=== PATIENT | female | born 1955 | race Caucasian/White ===

== ENCOUNTER 2017-09-08 10:31 | Emergency (ER) | payer BC ==
--- NOTE | 2017-09-08 10:53 | EDM.PDOC ---
ED HPI GENERAL MEDICAL PROBLEM - General Chief Complaint: Gastrointestinal Problem Stated Complaint: VOMITING Time Seen by Provider: 09/08/17 10:36 Source of Information: Reports: Patient History Limitations: Reports: No Limitations - History of Present Illness INITIAL COMMENTS - FREE TEXT/NARRATIVE: History of present illness: []Patient's been having vomiting for 5 days and a small amount of diarrhea that has now resolved. Patient states she vomits every time she tries to drink any water or puts anything in her mouth. She has had fevers and chills but has not measured temperature. Patient denies back or abdominal pain and states her urine is dark. Review of systems: As per history of present illness and below otherwise all systems reviewed and negative. Past medical history: As per history of present illness and as reviewed below otherwise noncontributory. Surgical history: As per history of present illness and as reviewed below otherwise noncontributory. Social history: No reported history of drug or alcohol abuse. Family history: As per history of present illness and as reviewed below otherwise noncontributory. Physical exam: General: Well developed, well nourished in NAD HEENT: Atraumatic, normocephalic, pupils reactive, negative for conjunctival pallor or scleral icterus, mucous membranes moist, throat clear, neck supple, nontender, trachea midline. Lungs: Clear to auscultation, breath sounds equal bilaterally, chest nontender. Heart: S1S2, regular, negative for clicks, rubs, or JVD. Abdomen: Soft, nondistended, tender in upper abdomen without rebound or guarding. Negative for masses or hepatosplenomegaly. Negative for costovertebral tenderness. Pelvis: Stable nontender. Genitourinary: Deferred. Rectal: Deferred. Extremities: Atraumatic, negative for cords or calf pain. Neurovascular unremarkable. Neuro: Awake, alert, oriented. Cranial nerves II through XII unremarkable. Cerebellum unremarkable. Motor and sensory unremarkable throughout. Exam nonfocal. Diagnostics: []Labs ordered showing elevated white count and elevated liver function tests. CT scan abdomen was ordered and it showed 10 x 6 x 8 mass with the liver suspicious for neoplasm with multiple other lesions throughout the liver representing possibly cysts there was one noted gallstone without inflammation or dilatation of the biliary tract. And moderate diverticulosis, there is also a 3.5 simple ovarian cyst on the left. CEA 125, CEA, CA 19 9 and alpha- fetoprotein were ordered and drawn here. Results pending Therapeutics: []Patient was given IV fluids and hydrated and Zofran while awaiting results with improvement of symptoms Impression: []Liver mass Plan: []Dr. Trevino was consulted who recommended patient be transferred to Dr. Weaver in [facility]. Definitive disposition and diagnosis as appropriate pending reevaluation and review of above. - Related Data Allergies Allergy/AdvReac Type Severity Reaction Status Date / Time No Known Allergies Allergy Verified 02/27/14 08:26 Home Meds: Home Meds . [No Known Home Meds] 09/08/17 [History] ED ROS GENERAL - Review of Systems Review Of Systems: See Below (The history of present illness) ED EXAM, GI/ABD - Physical Exam Exam: See Below (See history of present illness) Course - Vital Signs Last Recorded V/S: Last Vital Signs Temp 97.9 F 09/08/17 13:55 Pulse 72 09/08/17 13:55 Resp 16 09/08/17 13:55 BP 144/62 H 09/08/17 13:55 Pulse Ox 95 09/08/17 13:55 - Orders/Labs/Meds Orders: Active Orders 24 hr Category Date Time Status AFP,TUMOR MARKER [REF] Stat Lab 09/08/17 15:37 Received CA 19-9 [REF] Stat Lab 09/08/17 15:37 Received CANCER ANTIGEN 125,CA 125 [CHEM] Stat Lab 09/08/17 12:07 Results CARCINOEMBRYONIC ANTIGEN,CEA [CHEM] Stat Lab 09/08/17 12:07 Results CULTURE BLOOD [BC] Stat Lab 09/08/17 15:37 Received CULTURE BLOOD [BC] Stat Lab 09/08/17 15:48 Received Sodium Chloride 0.9% [Saline Flush] Med 09/08/17 11:48 Active 10 ml FLUSH ASDIRECTED PRN Sodium Chloride 0.9% [Saline Flush] Med 09/08/17 11:48 Active 2.5 ml FLUSH ASDIRECTED PRN Blood Culture x2 Reflex Set [OM.PC] Stat Oth 09/08/17 15:32 Ordered Saline Lock Insert [OM.PC] Stat Oth 09/08/17 11:48 Ordered Medication Orders Sodium Chloride (Saline Flush) 10 ml FLUSH ASDIRECTED PRN PRN Reason: Keep Vein Open Last Admin: 09/08/17 12:10 Dose: 10 ml Sodium Chloride (Saline Flush) 2.5 ml FLUSH ASDIRECTED PRN PRN Reason: Keep Vein Open Last Admin: 09/08/17 12:10 Dose: 2.5 ml Labs: Laboratory Tests 09/08/17 09/08/17 09/08/17 Range/Units 12:07 12:07 12:07 WBC 18.13 H (4.0-11.0) K/uL RBC 3.64 L (4.30-5.90) M/uL Hgb 10.8 L (12.0-16.0) g/dL Hct 32.1 L (36.0-46.0) % MCV 88.2 (80.0-98.0) fL MCH 29.7 (27.0-32.0) pg MCHC 33.6 (31.0-37.0) g/dL RDW Std Deviation 44.0 (28.0-62.0) fl RDW Coeff of Anna 14 (11.0-15.0) % Plt Count 273 (150-400) K/uL MPV 10.10 (7.40-12.00) fL Add Manual Diff YES Neutrophils % (Manual) 70 (48.0-80.0) % Band Neutrophils % 13 % Lymphocytes % (Manual) 13 L (16.0-40.0) % Monocytes % (Manual) 4 (0.0-15.0) % Nucleated RBC % 0.0 /100WBC Absolute Seg Neuts 12.7 H (1.4-5.7) Band Neutrophils # 2.4 Lymphocytes # (Manual) 2.4 (0.6-2.4) Monocytes # (Manual) 0.7 (0.0-0.8) Nucleated RBCs # 0 K/uL Sodium 137 (136-146) mmol/L Potassium 3.5 (3.5-5.1) mmol/L Chloride 102 (98-110) mmol/L Carbon Dioxide 25 (21-31) mmol/L BUN 25 H (6.0-23.0) mg/dL Creatinine 0.8 (0.6-1.5) mg/dL Est Cr Clr Drug Dosing 59.54 mL/min Estimated GFR (MDRD) > 60.0 ml/min Glucose 147 H (60-110) mg/dL Calcium 9.6 (8.8-10.8) mg/dL Total Bilirubin 2.4 H (0.1-1.5) mg/dL AST 57 H (5-40) IU/L ALT 86 H (8-54) IU/L Alkaline Phosphatase 149 (40-150) Total Protein 7.1 (6.0-8.0) g/dL Albumin 3.5 (3.4-4.8) g/dL Globulin 3.6 H (2.0-3.5) g/dL Albumin/Globulin Ratio 1.0 L (1.3-2.8) Lipase < 9 (7-80) U/L Carcinoembryonic Ag 2.1 ng/mL Urine Color Urine Appearance Urine pH (5.0-8.0) Ur Specific [place] (1.001-1.035) Urine Protein (NEGATIVE) mg/dL Urine Glucose (UA) (NEGATIVE) mg/dL Urine Ketones (NEGATIVE) mg/dL Urine Occult Blood (NEGATIVE) Urine Nitrite (NEGATIVE) Urine Bilirubin (NEGATIVE) Urine Ictotest Urine Urobilinogen (<2.0) EU/dL Ur Leukocyte Esterase (NEGATIVE) Urine RBC (0-2/HPF) Urine WBC (0-5/HPF) Ur Epithelial Cells (NONE-FEW) Urine Bacteria (NEGATIVE) Hyaline Casts (0-2/LPF) Urine Mucus (NONE-MOD) 09/08/17 Range/Units 13:14 WBC (4.0-11.0) K/uL RBC (4.30-5.90) M/uL Hgb (12.0-16.0) g/dL Hct (36.0-46.0) % MCV (80.0-98.0) fL MCH (27.0-32.0) pg MCHC (31.0-37.0) g/dL RDW Std Deviation (28.0-62.0) fl RDW Coeff of Anna (11.0-15.0) % Plt Count (150-400) K/uL MPV (7.40-12.00) fL Add Manual Diff Neutrophils % (Manual) (48.0-80.0) % Band Neutrophils % % Lymphocytes % (Manual) (16.0-40.0) % Monocytes % (Manual) (0.0-15.0) % Nucleated RBC % /100WBC Absolute Seg Neuts (1.4-5.7) Band Neutrophils # Lymphocytes # (Manual) (0.6-2.4) Monocytes # (Manual) (0.0-0.8) Nucleated RBCs # K/uL Sodium (136-146) mmol/L Potassium (3.5-5.1) mmol/L Chloride (98-110) mmol/L Carbon Dioxide (21-31) mmol/L BUN (6.0-23.0) mg/dL Creatinine (0.6-1.5) mg/dL Est Cr Clr Drug Dosing mL/min Estimated GFR (MDRD) ml/min Glucose (60-110) mg/dL Calcium (8.8-10.8) mg/dL Total Bilirubin (0.1-1.5) mg/dL AST (5-40) IU/L ALT (8-54) IU/L Alkaline Phosphatase (40-150) Total Protein (6.0-8.0) g/dL Albumin (3.4-4.8) g/dL Globulin (2.0-3.5) g/dL Albumin/Globulin Ratio (1.3-2.8) Lipase (7-80) U/L Carcinoembryonic Ag ng/mL Urine Color DARK YELLOW Urine Appearance SLT CLOUDY Urine pH 6.0 (5.0-8.0) Ur Specific [place] 1.020 (1.001-1.035) Urine Protein TRACE (NEGATIVE) mg/dL Urine Glucose (UA) NEGATIVE (NEGATIVE) mg/dL Urine Ketones NEGATIVE (NEGATIVE) mg/dL Urine Occult Blood NEGATIVE (NEGATIVE) Urine Nitrite NEGATIVE (NEGATIVE) Urine Bilirubin SMALL H (NEGATIVE) Urine Ictotest NEGATIVE Urine Urobilinogen 4.0 H (<2.0) EU/dL Ur Leukocyte Esterase NEGATIVE (NEGATIVE) Urine RBC 0-2 (0-2/HPF) Urine WBC 6-8 (0-5/HPF) Ur Epithelial Cells MODERATE (NONE-FEW) Urine Bacteria FEW (NEGATIVE) Hyaline Casts 0-1 (0-2/LPF) Urine Mucus LIGHT (NONE-MOD) Meds: Medications Generic Name Dose Route Start Last Admin Trade Name Freq PRN Reason Stop Dose Admin Sodium Chloride 10 ml 09/08/17 11:48 09/08/17 12:10 Saline Flush FLUSH 10 ml ASDIRECTED PRN Administration Keep Vein Open Sodium Chloride 2.5 ml 09/08/17 11:48 09/08/17 12:10 Saline Flush FLUSH 2.5 ml ASDIRECTED PRN Administration Keep Vein Open Discontinued Medications Generic Name Dose Route Start Last Admin Trade Name Chemoq PRN Reason Stop Dose Admin Sodium Chloride 1,000 mls @ 999 mls/hr 09/08/17 11:48 09/08/17 12:09 Normal Saline IV 09/08/17 12:48 999 mls/hr .Bolus ONE Administration Iopamidol 100 ml 09/08/17 13:35 09/08/17 13:37 Isovue Multipack-370 (76%) IVPUSH 09/08/17 13:36 100 ml ONETIME STA Administration Ondansetron HCl 4 mg 09/08/17 11:48 09/08/17 12:17 Zofran IVPUSH 09/08/17 11:49 4 mg ONETIME ONE Administration Departure - Departure Time of Disposition: 16:45 Disposition: DC/Tfer to Acute Hospital 02 Condition: Good Clinical Impression: Liver mass Vomiting Qualifiers: Vomiting type: unspecified Vomiting Intractability: non-intractable Nausea presence: without nausea Qualified Code(s): R11.11 - Vomiting without nausea - Discharge Information Referrals: Santo Lux DO [Primary Care Provider] - Forms: ED Department Discharge - My Orders Last 24 Hours: My Active Orders 09/08/17 11:48 Sodium Chloride 0.9% [Saline Flush] 10 ml FLUSH ASDIRECTED PRN Sodium Chloride 0.9% [Saline Flush] 2.5 ml FLUSH ASDIRECTED PRN Saline Lock Insert [OM.PC] Stat 09/08/17 12:07 CANCER ANTIGEN 125,CA 125 [CHEM] Stat CARCINOEMBRYONIC ANTIGEN,CEA [CHEM] Stat 09/08/17 15:32 Blood Culture x2 Reflex Set [OM.PC] Stat 09/08/17 15:37 AFP,TUMOR MARKER [REF] Stat CA 19-9 [REF] Stat CULTURE BLOOD [BC] Stat 09/08/17 15:48 CULTURE BLOOD [BC] Stat - Assessment/Plan Last 24 Hours: My Active Orders 09/08/17 11:48 Sodium Chloride 0.9% [Saline Flush] 10 ml FLUSH ASDIRECTED PRN Sodium Chloride 0.9% [Saline Flush] 2.5 ml FLUSH ASDIRECTED PRN Saline Lock Insert [OM.PC] Stat 09/08/17 12:07 CANCER ANTIGEN 125,CA 125 [CHEM] Stat CARCINOEMBRYONIC ANTIGEN,CEA [CHEM] Stat 09/08/17 15:32 Blood Culture x2 Reflex Set [OM.PC] Stat 09/08/17 15:37 AFP,TUMOR MARKER [REF] Stat CA 19-9 [REF] Stat CULTURE BLOOD [BC] Stat 09/08/17 15:48 CULTURE BLOOD [BC] Stat
[2017-09-08] MEDS ORDERED: Ondansetron 4 MG/2 ML SDV IVPUSH ONE (11:48)
[2017-09-08] MEDS ORDERED: Sodium Chloride 0.9% 10 ML Syringe FLUSH PRN (11:48)
[2017-09-08] MEDS ORDERED: Sodium Chloride 0.9% 2.5 ML Syringe FLUSH PRN (11:48)
[2017-09-08] MEDS ORDERED: Sodium Chloride 0.9% 1,000 ML IV ONE (11:48)
[2017-09-08 12:50] LABS: CHLORIDE,CL 102 mmol/L (98-110); SODIUM,NA 137 mmol/L (136-146)
[2017-09-08] MEDS ORDERED: Iopamidol 755 MG/ML 500 ML Multipack Bottle IVPUSH STA (13:35)
--- NOTE | 2017-09-08 16:20 | CT ---
EXAM DATE: 09/08/17 PATIENT'S AGE: 62 Patient: АННА HEIN Facility: [place], [place] Site . Site : 1955 Study: CT Abdomen/Pelvis [id number]/11/2018 1:57:45 PM Ordering Physician: Abram Licea Final Report: INDICATION: Nausea and vomiting. Loss of appetite. TECHNIQUE: CT abdomen and pelvis acquired with IV contrast. Contrast-enhanced images were obtained in the portal venous and delayed phases. COMPARISON: None. FINDINGS: LOWER CHEST: Unremarkable. LIVER: Moderately enlarged measuring up to 25 cm in length. Large low attenuation mass in the liver dome measures 10 x 8 x 6 cm mass visualized on image 15. This mass demonstrates multiple peripheral septations which are unchanged in density on the portal venous and delayed phases. Multiple other subcentimeter low attenuation lesions scattered throughout the liver likely represent cysts. GALLBLADDER AND BILE DUCTS: Subtle gallbladder stone is present. No inflammation or biliary dilatation. PANCREAS: Unremarkable. No mass or inflammation. SPLEEN: Unremarkable. Normal in size. No masses. ADRENAL GLANDS: Stable nonspecific enlargement of the left adrenal gland. Normal right adrenal gland. KIDNEYS: Unremarkable. No masses, stones, or hydronephrosis. GI TRACT: Moderate diverticulosis. Generalized wall thickening is demonstrated amongst multiple diverticula in the sigmoid colon. GI tract is otherwise normal in caliber and appearance. VASCULATURE: Unremarkable. LYMPH NODES: No lymphadenopathy. OMENTUM/PERITONEUM/ABDOMINAL WALL: Unremarkable. No sign of mass or infiltration. No free air or significant free fluid. PELVIS: 3.5 cm simple left ovarian cyst is present. Right ovary is not visualized. Uterus is absent. Urinary bladder is normal. BONES: Unremarkable for age. IMPRESSION: 1. Large mass in the liver measuring up to 10 cm demonstrates numerous soft tissue septations. This is concerning for neoplasm. MRI evaluation using a liver mass protocol is recommended as the next step in evaluating this lesion. Tissue sampling may also be necessary. 2. Moderate hepatomegaly. 3. Subtle cholelithiasis. 4. Nonspecific generalized thickening is present amongst diverticula in the sigmoid colon. Chronic inflammation is possible. This finding should be correlated with past or future colonoscopy results. 5. No other acute or specific finding to explain nausea and vomiting. Please note that all CT scans at this facility use dose modulation, iterative reconstruction, and/or weight-based dosing when appropriate to reduce radiation dose to as low as reasonably achievable. Dictated by John Buitrago MD @ Sep 08 2017 2:11PM (Electronic Signature) Report Signed by Proxy. MTDD
== END 2017-09-08 16:45 ==
LOC: MW.ED 10:31
DX: R16.0 Hepatomegaly, not elsewhere classified (principal); R11.11 Vomiting without nausea
CPT/HCPCS: 74177; 80053; 81001; 82105; 82378; 83690; 85025; 86301; 86304; 87040; 87804; 96361; 96374; 99285; J2405; J7040; Q9967; 99284

== ENCOUNTER 2017-09-19 08:19 | Emergency (ER) | payer BC ==
[2017-09-19] MEDS ORDERED: Sodium Chloride 0.9% 1,000 ML IV ONE (08:37)
[2017-09-19] MEDS ORDERED: Ondansetron 4 MG/2 ML SDV IVPUSH ONE (08:37)
[2017-09-19] MEDS ORDERED: Morphine 2 MG/ML Syringe IVPUSH ONE (08:37)
[2017-09-19] MEDS ORDERED: Sodium Chloride 0.9% 10 ML Syringe FLUSH PRN (08:37)
[2017-09-19] MEDS ORDERED: Sodium Chloride 0.9% 2.5 ML Syringe FLUSH PRN (08:37)
--- NOTE | 2017-09-19 08:42 | EDM.PDOC ---
ED HPI GENERAL MEDICAL PROBLEM - General Chief Complaint: Abdominal Pain Stated Complaint: R ABD PAIN Time Seen by Provider: 09/19/17 08:29 - History of Present Illness INITIAL COMMENTS - FREE TEXT/NARRATIVE: HISTORY AND PHYSICAL: History of present illness: Patient 62-year-old female presents with concern of right-sided abdominal pain patient had a liver abscess that was drained on or about 10 September she's currently on antibiotics in form of Rocephin 2 g daily and presents now with a concern of right-sided abdominal pain with equivocal splinting worse over last 48 hours she was advised that biliary colic is an common prodrome related to her current state. He has never had prior gallbladder disease or problems. He denies fever chills denies chest pain denies diarrhea Review of systems: As per history of present illness and below otherwise all systems reviewed and negative. Past medical history: As per history of present illness and as reviewed below otherwise noncontributory. Surgical history: As per history of present illness and as reviewed below otherwise noncontributory. Social history: No reported history of drug or alcohol abuse. Family history: As per history of present illness and as reviewed below otherwise noncontributory. Physical exam: HEENT: Atraumatic, normocephalic, pupils reactive, negative for conjunctival pallor or scleral icterus, mucous membranes moist, throat clear, neck supple, nontender, trachea midline. Lungs: Clear to auscultation, breath sounds equal bilaterally, chest nontender. Heart: S1S2, regular, negative for clicks, rubs, or JVD. Abdomen: Soft, nondistended, right upper quadrant tenderness to deep palpation no rebound or guarding. Negative for masses or hepatosplenomegaly. Negative for costovertebral tenderness. Pelvis: Stable nontender. Genitourinary: Deferred. Rectal: Deferred. Extremities: Atraumatic, negative for cords or calf pain. Neurovascular unremarkable. Neuro: Awake, alert, oriented. Cranial nerves II through XII unremarkable. Cerebellum unremarkable. Motor and sensory unremarkable throughout. Exam nonfocal. Diagnostics: CBC CMP amylase lipase PT/INR troponin chest x-ray EKG CT abdomen and pelvis Therapeutics: Saline 1 L bolus Zofran 4 mg IV morphine sulfate 2 mg IV when necessary Impression: #1 history of liver abscess with percutaneous drainage #2 right-sided abdominal pain Definitive disposition and diagnosis as appropriate pending reevaluation and review of above. 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 ED EXAM, GENERAL - Physical Exam Exam: See Below (See dictation) Course - Vital Signs Text/Narrative:: Patient emergency department course has been unremarkable she is without any significant pain she does have some discomfort still with position changes but no vomiting no fever her workup in the emergency department was reviewed with patient the unclear etiology of her pain at this point is to be determined I discussed with her various options including admission for observation continue her current therapy and close follow-up with her [place] physician group she opts for the latter with discharge home with close follow-up she's return as needed as discussed for persistent or worsening pain nausea vomiting fever chills continue her current therapy Last Recorded V/S: Last Vital Signs Temp 35.9 C 09/19/17 08:40 Pulse 78 09/19/17 10:45 Resp 13 09/19/17 10:45 BP 179/89 H 09/19/17 10:45 Pulse Ox 95 09/19/17 10:45 - Orders/Labs/Meds Orders: Active Orders 24 hr Category Date Time Status Cardiac Monitoring [RC] . DIRECTED Care 09/19/17 08:36 Active EKG Documentation Completion [RC] STAT Care 09/19/17 08:36 Active Pulse Oximetry [RC] ASDIRECTED Care 09/19/17 08:36 Active Sodium Chloride 0.9% [Saline Flush] Med 09/19/17 08:37 Active 10 ml FLUSH ASDIRECTED PRN Sodium Chloride 0.9% [Saline Flush] Med 09/19/17 08:37 Active 2.5 ml FLUSH ASDIRECTED PRN Saline Lock Insert [OM.PC] Stat Oth 09/19/17 08:36 Ordered Medication Orders Sodium Chloride (Saline Flush) 10 ml FLUSH ASDIRECTED PRN PRN Reason: Keep Vein Open Last Admin: 09/19/17 09:12 Dose: 10 ml Sodium Chloride (Saline Flush) 2.5 ml FLUSH ASDIRECTED PRN PRN Reason: Keep Vein Open Last Admin: 09/19/17 09:12 Dose: 2.5 ml Labs: Laboratory Tests 09/19/17 09/19/17 09/19/17 Range/Units 08:50 08:50 08:50 WBC 13.75 H (4.0-11.0) K/uL RBC 4.04 L (4.30-5.90) M/uL Hgb 11.9 L (12.0-16.0) g/dL Hct 36.8 (36.0-46.0) % MCV 91.1 (80.0-98.0) fL MCH 29.5 (27.0-32.0) pg MCHC 32.3 (31.0-37.0) g/dL RDW Std Deviation 48.3 (28.0-62.0) fl RDW Coeff of Anna 15 (11.0-15.0) % Plt Count 599 H (150-400) K/uL MPV 8.60 (7.40-12.00) fL Neut % (Auto) 78.7 (48.0-80.0) % Lymph % (Auto) 12.7 L (16.0-40.0) % [place] % (Auto) 7.5 (0.0-15.0) % Eos % (Auto) 0.7 (0.0-7.0) % Baso % (Auto) 0.4 (0.0-1.5) % Neut # (Auto) 10.8 H (1.4-5.7) K/uL Lymph # (Auto) 1.8 (0.6-2.4) K/uL [place] # (Auto) 1.0 H (0.0-0.8) K/uL Eos # (Auto) 0.1 (0.0-0.7) K/uL Baso # (Auto) 0.1 (0.0-0.1) K/uL Nucleated RBC % 0.0 /100WBC Nucleated RBCs # 0 K/uL INR 1.13 Sodium 137 (136-146) mmol/L Potassium 3.7 (3.5-5.1) mmol/L Chloride 102 (98-110) mmol/L Carbon Dioxide 23 (21-31) mmol/L BUN 8 (6.0-23.0) mg/dL Creatinine 0.7 (0.6-1.5) mg/dL Est Cr Clr Drug Dosing 65.06 mL/min Estimated GFR (MDRD) > 60.0 ml/min Glucose 134 H (60-110) mg/dL Calcium 9.5 (8.8-10.8) mg/dL Total Bilirubin 0.7 (0.1-1.5) mg/dL AST 20 (5-40) IU/L ALT 17 (8-54) IU/L Alkaline Phosphatase 94 (40-150) Troponin I < 0.10 (0.0-0.29) NG/ML Total Protein 7.4 (6.0-8.0) g/dL Albumin 3.9 (3.4-4.8) g/dL Globulin 3.5 (2.0-3.5) g/dL Albumin/Globulin Ratio 1.1 L (1.3-2.8) Amylase 32 (10-90) U/L Lipase 18 (7-80) U/L Urine Color Urine Appearance Urine pH (5.0-8.0) Ur Specific [place] (1.001-1.035) Urine Protein (NEGATIVE) mg/dL Urine Glucose (UA) (NEGATIVE) mg/dL Urine Ketones (NEGATIVE) mg/dL Urine Occult Blood (NEGATIVE) Urine Nitrite (NEGATIVE) Urine Bilirubin (NEGATIVE) Urine Urobilinogen (<2.0) EU/dL Ur Leukocyte Esterase (NEGATIVE) Urine RBC (0-2/HPF) Urine WBC (0-5/HPF) Ur Epithelial Cells (NONE-FEW) Urine Bacteria (NEGATIVE) 09/19/17 Range/Units 10:30 WBC (4.0-11.0) K/uL RBC (4.30-5.90) M/uL Hgb (12.0-16.0) g/dL Hct (36.0-46.0) % MCV (80.0-98.0) fL MCH (27.0-32.0) pg MCHC (31.0-37.0) g/dL RDW Std Deviation (28.0-62.0) fl RDW Coeff of Anna (11.0-15.0) % Plt Count (150-400) K/uL MPV (7.40-12.00) fL Neut % (Auto) (48.0-80.0) % Lymph % (Auto) (16.0-40.0) % [place] % (Auto) (0.0-15.0) % Eos % (Auto) (0.0-7.0) % Baso % (Auto) (0.0-1.5) % Neut # (Auto) (1.4-5.7) K/uL Lymph # (Auto) (0.6-2.4) K/uL [place] # (Auto) (0.0-0.8) K/uL Eos # (Auto) (0.0-0.7) K/uL Baso # (Auto) (0.0-0.1) K/uL Nucleated RBC % /100WBC Nucleated RBCs # K/uL INR Sodium (136-146) mmol/L Potassium (3.5-5.1) mmol/L Chloride (98-110) mmol/L Carbon Dioxide (21-31) mmol/L BUN (6.0-23.0) mg/dL Creatinine (0.6-1.5) mg/dL Est Cr Clr Drug Dosing mL/min Estimated GFR (MDRD) ml/min Glucose (60-110) mg/dL Calcium (8.8-10.8) mg/dL Total Bilirubin (0.1-1.5) mg/dL AST (5-40) IU/L ALT (8-54) IU/L Alkaline Phosphatase (40-150) Troponin I (0.0-0.29) NG/ML Total Protein (6.0-8.0) g/dL Albumin (3.4-4.8) g/dL Globulin (2.0-3.5) g/dL Albumin/Globulin Ratio (1.3-2.8) Amylase (10-90) U/L Lipase (7-80) U/L Urine Color YELLOW Urine Appearance CLEAR Urine pH 6.5 (5.0-8.0) Ur Specific [place] 1.015 (1.001-1.035) Urine Protein NEGATIVE (NEGATIVE) mg/dL Urine Glucose (UA) NEGATIVE (NEGATIVE) mg/dL Urine Ketones NEGATIVE (NEGATIVE) mg/dL Urine Occult Blood NEGATIVE (NEGATIVE) Urine Nitrite NEGATIVE (NEGATIVE) Urine Bilirubin NEGATIVE (NEGATIVE) Urine Urobilinogen 0.2 (<2.0) EU/dL Ur Leukocyte Esterase SMALL (NEGATIVE) Urine RBC 0-1 (0-2/HPF) Urine WBC 3-5 (0-5/HPF) Ur Epithelial Cells FEW (NONE-FEW) Urine Bacteria RARE (NEGATIVE) Meds: Medications Generic Name Dose Route Start Last Admin Trade Name Bethanie PRN Reason Stop Dose Admin Sodium Chloride 10 ml 09/19/17 08:37 09/19/17 09:12 Saline Flush FLUSH 10 ml ASDIRECTED PRN Administration Keep Vein Open Sodium Chloride 2.5 ml 09/19/17 08:37 09/19/17 09:12 Saline Flush FLUSH 2.5 ml ASDIRECTED PRN Administration Keep Vein Open Discontinued Medications Generic Name Dose Route Start Last Admin Trade Name Bethanie PRN Reason Stop Dose Admin Sodium Chloride 1,000 mls @ 999 mls/hr 09/19/17 08:37 09/19/17 09:12 Normal Saline IV 09/19/17 09:37 999 mls/hr STAT ONE Administration Iopamidol 100 ml 09/19/17 11:10 09/19/17 11:11 Isovue Multipack-370 (76%) IVPUSH 09/19/17 11:11 100 ml ONETIME STA Administration Morphine Sulfate 2 mg 09/19/17 08:37 09/19/17 11:09 Morphine IVPUSH 09/19/17 08:38 Not Given ONETIME ONE Ondansetron HCl 4 mg 09/19/17 08:37 09/19/17 09:12 Zofran IVPUSH 09/19/17 08:38 4 mg ONETIME ONE Administration Departure - Departure Time of Disposition: 11:47 Disposition: Home, Self-Care 01 Condition: Good Clinical Impression: Abdominal pain - Discharge Information Referrals: Santo Lux DO [Primary Care Provider] - Forms: ED Department Discharge Additional Instructions: The following information is given to patients seen in the emergency department who are being discharged to home. This information is to outline your options for follow-up care. We provide all patients seen in our emergency department with a follow-up referral. The need for follow-up, as well as the timing and circumstances, are variable depending upon the specifics of your emergency department visit. If you don't have a primary care physician on staff, we will provide you with a referral. We always advise you to contact your personal physician following an emergency department visit to inform them of the circumstance of the visit and for follow-up with them and/or the need for any referrals to a consulting specialist. The emergency department will also refer you to a specialist when appropriate. This referral assures that you have the opportunity for followup care with a specialist. All of these measure are taken in an effort to provide you with optimal care, which includes your followup. Under all circumstances we always encourage you to contact your private physician who remains a resource for coordinating your care. When calling for followup care, please make the office aware that this follow-up is from your recent emergency room visit. If for any reason you are refused follow-up, please contact the [facility] emergency department at and asked to speak to the emergency department charge nurse. Follow-up private medical doctor call to schedule routine appointment continue current medications and return as needed as discussed - My Orders Last 24 Hours: My Active Orders 09/19/17 08:36 Cardiac Monitoring [RC] . DIRECTED EKG Documentation Completion [RC] STAT Pulse Oximetry [RC] ASDIRECTED Saline Lock Insert [OM.PC] Stat 09/19/17 08:37 Sodium Chloride 0.9% [Saline Flush] 10 ml FLUSH ASDIRECTED PRN Sodium Chloride 0.9% [Saline Flush] 2.5 ml FLUSH ASDIRECTED PRN - Assessment/Plan Last 24 Hours: My Active Orders 09/19/17 08:36 Cardiac Monitoring [RC] . DIRECTED EKG Documentation Completion [RC] STAT Pulse Oximetry [RC] ASDIRECTED Saline Lock Insert [OM.PC] Stat 09/19/17 08:37 Sodium Chloride 0.9% [Saline Flush] 10 ml FLUSH ASDIRECTED PRN Sodium Chloride 0.9% [Saline Flush] 2.5 ml FLUSH ASDIRECTED PRN
[2017-09-19 09:34] LABS: CHLORIDE,CL 102 mmol/L (98-110); SODIUM,NA 137 mmol/L (136-146)
--- NOTE | 2017-09-19 10:17 | CR ---
EXAMINATION: Two-view chest (PA and Lateral views). HISTORY: Shortness of breath. FINDINGS: The trachea is midline. The cardiomediastinal silhouette is within normal limits. No pulmonary infilt rates, effusions or pneumothorax. Right-sided PICC line noted with tip near the atrial caval junction . Right mid chest discoid atelectasis. Osseous structures appear unremarkable. IMPRESSION: Atelectasis without an acute cardiopulmonary finding.
[2017-09-19] MEDS ORDERED: Iopamidol 755 MG/ML 500 ML Multipack Bottle IVPUSH STA (11:10)
--- NOTE | 2017-09-19 11:18 | CT ---
CT of the abdomen and pelvis with contrast. HISTORY: Pain Comparison: 09/08/2017 TECHNIQUE: Axial CT images were obtained of the abdomen and pelvis following administration of 100 mL of Isovue-370 in the left antecubital fossa without complication. Coronal and sagittal reconstructio ns obtained. FINDINGS: Mild atelectasis within the right lung base with a small pleural effusion. Again noted is a heterogeneously enhancing collection within the dome of the liver measuring 8 x 5 cm , previously measuring 10 x 9 cm. This now contains a few foci of air consistent with recent drainage . There is no evidence of a hepatic hemorrhage or perihepatic hematoma. Small hepatic cysts also note d. No abdominal ascites. The spleen and pancreas appear normal. The gallbladder is normal. Mild left adrenal gland thickening. The kidneys enhance and function symmetrically without evidence of obstructive uropathy. The large and small bowel are normal in caliber without evidence of obstruction. Diverticulosis witho ut evidence of diverticulitis. No focal pericolonic inflammation or stranding. The urinary bladder is decompressed. There is a 4 x 3.6 cm simple appearing left ovarian cyst. Tiny fat-containing inguinal hernias bilaterally. No suspicious osseous abnormalities. IMPRESSION: 1. Left basilar atelectasis and small pleural effusion. 2. Again noted is a heterogeneous 8 x 5 cm mass within the dome of the liver. Decreased in size from the prior examination consistent with history of drainage. Differential includes a necrotic neoplasm, abscess, amongst others. 3. Diverticulosis without evidence of diverticulitis with wall thickening within the sigmoid colon. 4. No acute findings within the abdomen or pelvis. 5. 4 x 3.6 cm simple appearing left ovarian cyst.
== END 2017-09-19 12:03 | disposition home or self-care (01) ==
LOC: MW.ED 08:19
DX: R10.11 Right upper quadrant pain (principal); Z88.5 Allergy status to narcotic agent; Z79.899 Other long term (current) drug therapy; Z87.891 Personal history of nicotine dependence
CPT/HCPCS: 36415; 71046; 74177; 80053; 81001; 82150; 83690; 84484; 85025; 85610; 93005; 96361; 96374; 99285; J2405; J7040; Q9967; 85652; 86140; 99284

== ENCOUNTER 2019-12-01 19:17 | Observation (INO) | payer BC, MEDICARE ==
[2019-12-01] MEDS ORDERED: Sodium Chloride 0.9% 500 ML IV SCH ×2 (20:00→21:00)
[2019-12-01] MEDS ORDERED: Ondansetron 4 MG/2 ML SDV IVPUSH ONE (20:02)
--- NOTE | 2019-12-01 20:07 | EDM.PDOC ---
ED HPI GENERAL MEDICAL PROBLEM - General Chief Complaint: General Stated Complaint: BLOOD PRESSURE Time Seen by Provider: 12/01/19 20:04 Source of Information: Reports: Patient History Limitations: Reports: No Limitations - History of Present Illness INITIAL COMMENTS - FREE TEXT/NARRATIVE: Patient 64-year-old female with past medical history of hypertension and hyperlipidemia presenting with chief complaint of low blood pressure. Patient states her blood pressure this morning was 80/40. Patient states she was vomiting several times today. Patient reports feeling some associated lightheadedness but has since resolved. She did not want to come to the ER, but her daughter forced her to come to the ER. Patient states she feels asymptomatic now. Patient has no complaints. Denies any recent changes in her medications. Denies any fever, diarrhea, sore throat, shortness of breath. Pmhx: Hypertension, hyperlipidemia Family Hx: noncontributory Smoking history? no Etoh use? none Drug use? none In addition to that documented in the HPI above, the additional ROS was obtained : Constitutional: Denies fevers or chills Eyes: Denies vision changes ENMT: Denies sore throat CV: Denies chest pain Resp: Denies SOB GI: Per HPI : Denies painful urination MSK: Denies recent trauma Skin: Denies new rashes Neuro: Denies new numbness or tingling or weakness Endocrine: Denies unexpected weight loss Heme: Denies bleeding disorders I have reviewed the triage vital signs Const: Well nourished, well developed, appears stated age Eyes: PERRL, no conjunctival injection HENT: NCAT, Neck supple without meningismus CV: RRR, Warm, well-perfused extremities RESP: CTAB, Unlabored respiratory effort GI: soft, non-tender, non-distended, no masses MSK: No gross deformities appreciated Skin: Warm, dry. 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 Sensation and motor function of extremities grossly intact. Psych: Appropriate mood and affect Assessment and plan: Patient is a 64-year-old female presenting with complaint of hypotension. Patient's blood pressure initially on arrival in the ER was 80/40 with a pulse in the low 40s. Patient was alert and oriented and not in any acute distress. Patient given IV fluids with only slight improvement of blood pressure still in the low 90s over low 40s. Atropine had no effect on patient's heart rate and blood pressure. Patient's labs were remarkable for acute kidney injury with a BUN of 29 and creatinine of 2.2. Serial EKGs were done demonstrating sinus bradycardia with no evidence of heart block or other significant abnormalities. Patient's likely cause for hypotension is combination of hypovolemia secondary to vomiting as well as possible beta-ricky overdose which is unintentional. Patient given 3 g of calcium gluconate per recommendations from toxicology, poison control center. Patient had significant improvement of blood pressure with the calcium. Unexplained at this time is the patient's hypoxia. Patient is not demonstrating any fevers, shortness of breath, cough, sore throat. Patient's chest x-ray is within normal limits. Patient's venous blood gas is within normal limits. Patient is historical smoker but not a recent smoker so COPD is less likely. Pulmonary embolism was also low likelihood given patient's history and presentation. Patient placed on supplemental O2 and is remained stable ever since. Patient will be placed under the observation service for for much further monitoring of blood pressure and hypoxia. For the behavioral health complaints, no acute intervention is indicated at this time. I spoke with the patient's daughter Sharri as well as the patient regarding any thoughts about suicidal ideations. Patient states that this happened briefly this morning when she states she wanted to but did not go any further and has no thoughts of hurting herself right now. Patient is not homicidal or psychotic. I informed the patient's daughter regarding the patient 's current disposition and the patient's daughter does not wish to pursue any involuntary commission at this time. Psychiatric complaints will be dealt with as outpatient. Critical Care Procedure Note Authorized and Performed by: Dr. Longo Total critical care time: Approximately 35 minutes Due to a high probability of clinically significant, life threatening deterioration, the patient required my highest level of preparedness to intervene emergently and I personally spent this critical care time directly and personally managing the patient. This critical care time included obtaining a history; examining the patient; pulse oximetry; ordering and review of studies ; arranging urgent treatment with development of a management plan; evaluation of patient's response to treatment; frequent reassessment; and, discussions with other providers. This critical care time was performed to assess and manage the high probability of imminent, life-threatening deterioration that could result in multi-organ failure due to hypotension, bradycardia and acute kidney injury. It was exclusive of separately billable procedures and treating other patients and teaching time. Please see MDM section and the rest of the note for further information on patient assessment and treatment. - Related Data Allergies Allergy/AdvReac Type Severity Reaction Status Date / Time morphine Allergy Vomiting Verified 12/01/19 19:36 Home Meds: Home Meds Metoprolol Succinate [Toprol XL 100mg] 100 mg PO DAILY 09/19/17 [History] Moexipril [Univasc] 1 tab PO DAILY 09/19/17 [History] amLODIPine Besylate [Amlodipine Besylate] 12/01/19 [History] atorvaSTATin Calcium [Atorvastatin Calcium] 12/01/19 [History] buPROPion [Wellbutrin] 12/01/19 [History] Past Medical History Cardiovascular History: Reports: Hypertension Respiratory History: Reports: SOB Other Gastrointestinal History: Liver Abscess drainage 2018 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 Liver Cyst Female Surgical History: Reports: Hysterectomy Other Female Surgeries/Procedures: Ovarian Cyst Social & Family History - Family History Family Medical History: Noncontributory - Tobacco Use Smoking Status *Q: Never Smoker - Caffeine Use Caffeine Use: Reports: Coffee - Recreational Drug Use Recreational Drug Use: No ED ROS GENERAL - Review of Systems Review Of Systems: See Below ED EXAM, GENERAL - Physical Exam Exam: See Below Course - Vital Signs Last Recorded V/S: Last Vital Signs Temp 35.9 C L 12/01/19 19:39 Pulse 45 L 12/01/19 23:13 Resp 14 12/01/19 19:39 BP 98/55 L 12/01/19 23:13 Pulse Ox 94 L 12/01/19 23:13 - Orders/Labs/Meds Orders: Active Orders 24 hr Category Date Time Status Admission Status [Patient Status] [ADT] Stat ADT 12/01/19 23:31 Ordered Blood Glucose Check, Bedside [RC] ONETIME Care 12/01/19 20:42 Active EKG 12 Lead [EKG Documentation Completion] [RC] STAT Care 12/01/19 19:49 Active EKG Documentation Completion [RC] STAT Care 12/01/19 23:19 Active TROPONIN I [CHEM] Stat Lab 12/01/19 23:19 Ordered Sodium Chloride 0.9% [Normal Saline] 500 ml Med 12/01/19 20:00 Active IV .BOLUS Sodium Chloride 0.9% [Normal Saline] 500 ml Med 12/01/19 21:00 Active IV .BOLUS Medication Orders Sodium Chloride (Normal Saline) 500 mls @ 1,000 mls/hr IV .BOLUS HARLEY Last Admin: 12/01/19 20:04 Dose: 1,000 mls/hr Sodium Chloride (Normal Saline) 500 mls @ 1,000 mls/hr IV .BOLUS HARLEY Last Admin: 12/01/19 21:00 Dose: 1,000 mls/hr Labs: Laboratory Tests 12/01/19 12/01/19 12/01/19 Range/Units 19:55 20:40 20:40 WBC 14.35 H (4.0-11.0) K/uL RBC 4.34 (4.30-5.90) M/uL Hgb 13.4 (12.0-16.0) g/dL Hct 40.1 (36.0-46.0) % MCV 92.4 (80.0-98.0) fL MCH 30.9 (27.0-32.0) pg MCHC 33.4 (31.0-37.0) g/dL RDW Std Deviation 45.5 (28.0-62.0) fl RDW Coeff of Anna 14 (11.0-15.0) % Plt Count 313 (150-400) K/uL MPV 9.60 (7.40-12.00) fL Neut % (Auto) 77.6 (48.0-80.0) % Lymph % (Auto) 16.0 (16.0-40.0) % [place] % (Auto) 6.2 (0.0-15.0) % Eos % (Auto) 0.1 (0.0-7.0) % Baso % (Auto) 0.1 (0.0-1.5) % Neut # (Auto) 11.1 H (1.4-5.7) K/uL Lymph # (Auto) 2.3 (0.6-2.4) K/uL [place] # (Auto) 0.9 H (0.0-0.8) K/uL Eos # (Auto) 0.0 (0.0-0.7) K/uL Baso # (Auto) 0.0 (0.0-0.1) K/uL Nucleated RBC % 0.0 /100WBC Nucleated RBCs # 0 K/uL VBG pH (7.31-7.41) VBG pCO2 (35-45) mmHG VBG pO2 (30-40) mmHG VBG HCO3 (22-30) mEq/L VBG Total CO2 (41-51) mmol/L VBG Base Excess (-3.0-3.0) Sodium 139 (136-145) mmol/L Potassium 5.4 H (3.5-5.1) mmol/L Chloride 103 (98-107) mmol/L Carbon Dioxide 27.4 (21.0-32.0) mmol/L BUN 29 H (7.0-18.0) mg/dL Creatinine 2.2 H (0.6-1.0) mg/dL Est Cr Clr Drug Dosing 19.24 mL/min Estimated GFR (MDRD) 22.4 ml/min Glucose 129 H (74-106) mg/dL Calcium 9.9 (8.5-10.1) mg/dL Total Bilirubin 0.9 (0.2-1.0) mg/dL AST 11 L (15-37) IU/L ALT 20 (14-63) IU/L Alkaline Phosphatase 64 (46-116) U/L Troponin I < 0.050 (0.000-0.056) ng/mL Total Protein 6.9 (6.4-8.2) g/dL Albumin 3.8 (3.4-5.0) g/dL Globulin 3.1 (2.6-4.0) g/dL Albumin/Globulin Ratio 1.2 (0.9-1.6) Salicylates 0.3 (0-20) mg/dL Acetaminophen ug/mL 12/01/19 12/01/19 Range/Units 20:40 20:50 WBC (4.0-11.0) K/uL RBC (4.30-5.90) M/uL Hgb (12.0-16.0) g/dL Hct (36.0-46.0) % MCV (80.0-98.0) fL MCH (27.0-32.0) pg MCHC (31.0-37.0) g/dL RDW Std Deviation (28.0-62.0) fl RDW Coeff of Anna (11.0-15.0) % Plt Count (150-400) K/uL MPV (7.40-12.00) fL Neut % (Auto) (48.0-80.0) % Lymph % (Auto) (16.0-40.0) % [place] % (Auto) (0.0-15.0) % Eos % (Auto) (0.0-7.0) % Baso % (Auto) (0.0-1.5) % Neut # (Auto) (1.4-5.7) K/uL Lymph # (Auto) (0.6-2.4) K/uL [place] # (Auto) (0.0-0.8) K/uL Eos # (Auto) (0.0-0.7) K/uL Baso # (Auto) (0.0-0.1) K/uL Nucleated RBC % /100WBC Nucleated RBCs # K/uL VBG pH 7.41 (7.31-7.41) VBG pCO2 45 (35-45) mmHG VBG pO2 36 (30-40) mmHG VBG HCO3 28 (22-30) mEq/L VBG Total CO2 25 L (41-51) mmol/L VBG Base Excess 2.9 (-3.0-3.0) Sodium (136-145) mmol/L Potassium (3.5-5.1) mmol/L Chloride (98-107) mmol/L Carbon Dioxide (21.0-32.0) mmol/L BUN (7.0-18.0) mg/dL Creatinine (0.6-1.0) mg/dL Est Cr Clr Drug Dosing mL/min Estimated GFR (MDRD) ml/min Glucose (74-106) mg/dL Calcium (8.5-10.1) mg/dL Total Bilirubin (0.2-1.0) mg/dL AST (15-37) IU/L ALT (14-63) IU/L Alkaline Phosphatase (46-116) U/L Troponin I (0.000-0.056) ng/mL Total Protein (6.4-8.2) g/dL Albumin (3.4-5.0) g/dL Globulin (2.6-4.0) g/dL Albumin/Globulin Ratio (0.9-1.6) Salicylates (0-20) mg/dL Acetaminophen <2.0 ug/mL Meds: Medications Generic Name Dose Route Start Last Admin Trade Name Freq PRN Reason Stop Dose Admin Sodium Chloride 500 mls @ 1,000 mls/hr 12/01/19 20:00 12/01/19 20:04 Normal Saline IV 1,000 mls/hr .BOLUS HARLEY Administration Sodium Chloride 500 mls @ 1,000 mls/hr 12/01/19 21:00 12/01/19 21:00 Normal Saline IV 1,000 mls/hr .BOLUS HARLEY Administration Discontinued Medications Generic Name Dose Route Start Last Admin Trade Name Freq PRN Reason Stop Dose Admin Atropine Sulfate 0.5 mg 12/01/19 20:47 12/01/19 21:03 Atropine 0.1 Mg/Ml IVPUSH 12/01/19 20:48 0.5 mg ONETIME ONE Administration Calcium Gluconate 3 gm 12/01/19 21:56 12/01/19 23:11 Calcium Gluconate IVPUSH 12/01/19 21:57 3 gm ONETIME ONE Administration Glucagon 3 mg 12/01/19 21:49 12/01/19 23:15 Glucagen IVPUSH 12/01/19 21:50 Not Given ONETIME ONE Ondansetron HCl 4 mg 12/01/19 20:02 12/01/19 23:12 Zofran IVPUSH 12/01/19 20:03 Not Given ONETIME ONE Departure - Departure Time of Disposition: 23:37 Disposition: Refer to Observation Clinical Impression: Hypotension, Hypoxia - Discharge Information Referrals: Deny Win MD [Primary Care Provider] - Forms: ED Department Discharge Sepsis Event Note - Evaluation Sepsis Screening Result: No Definite Risk - Focused Exam Vital Signs: Vital Signs Temp Pulse Resp BP Pulse Ox 12/01/19 23:13 45 L 98/55 L 94 L 12/01/19 22:50 44 L 96/42 L 93 L 12/01/19 21:58 43 L 87/41 L 95 12/01/19 21:11 47 L 90/43 L 94 L 12/01/19 21:07 89 L 12/01/19 21:03 42 L 90/39 L 12/01/19 20:07 41 L 80/40 L 12/01/19 19:39 35.9 C L 42 L 14 98/41 L 91 L Date Exam was Performed: 12/01/19 Time Exam was Performed: 23:32 - My Orders Last 24 Hours: My Active Orders 12/01/19 19:49 EKG 12 Lead [EKG Documentation Completion] [RC] STAT 12/01/19 20:00 Sodium Chloride 0.9% [Normal Saline] 500 ml IV .BOLUS 12/01/19 20:42 Blood Glucose Check, Bedside [RC] ONETIME 12/01/19 21:00 Sodium Chloride 0.9% [Normal Saline] 500 ml IV .BOLUS 12/01/19 23:19 EKG Documentation Completion [RC] STAT TROPONIN I [CHEM] Stat 12/01/19 23:31 Admission Status [Patient Status] [ADT] Stat - Assessment/Plan Last 24 Hours: My Active Orders 12/01/19 19:49 EKG 12 Lead [EKG Documentation Completion] [RC] STAT 12/01/19 20:00 Sodium Chloride 0.9% [Normal Saline] 500 ml IV .BOLUS 12/01/19 20:42 Blood Glucose Check, Bedside [RC] ONETIME 12/01/19 21:00 Sodium Chloride 0.9% [Normal Saline] 500 ml IV .BOLUS 12/01/19 23:19 EKG Documentation Completion [RC] STAT TROPONIN I [CHEM] Stat 12/01/19 23:31 Admission Status [Patient Status] [ADT] Stat
[2019-12-01] MEDS ORDERED: Atropine 0.1 MG/ML 10 ML Syringe IVPUSH ONE (20:47)
--- NOTE | 2019-12-01 21:04 | CR ---
Chest: AP view of the chest was obtained. Comparison: No previous chest x-rays available. Heart size and mediastinum are normal for AP technique. Lungs are clear with no acute parenchymal change. Bony structures are grossly intact. Impression: 1. Nothing acute is appreciated on AP chest x-ray. Diagnostic code #1 Study was dictated in MDT
[2019-12-01 21:05] LABS: BLOOD UREA NITROGEN,BUN 29 mg/dL (7.0-18.0); CARBON DIOXIDE,CO2 27.4 mmol/L (21.0-32.0); CHLORIDE,CL 103 mmol/L (98-107); GLUCOSE RANDOM 129 mg/dL (74-106); POTASSIUM,K 5.4 mmol/L (3.5-5.1); SODIUM,NA 139 mmol/L (136-145)
[2019-12-01] MEDS ORDERED: Glucagon,Human Recombinant 1 MG Vial IVPUSH ONE (21:49)
[2019-12-01] MEDS ORDERED: Calcium Gluconate 10% 1 GM/10 ML SDV IVPUSH ONE (21:56)
[2019-12-01] MEDS ORDERED: Atropine 0.1 MG/ML 10 ML Syringe IVPUSH PRN (23:39)
[2019-12-01] MEDS ORDERED: Albuterol 0.5% 5 MG/ML Neb Soln 20 ML Bottle NEB PRN (23:41)
[2019-12-02] MEDS: Sodium Chloride 0.9% 1,000 ML IV SCH ×2 (00:35→09:34)
[2019-12-02 06:59] LABS: CARBON DIOXIDE,CO2 28.3 mmol/L (21.0-32.0); POTASSIUM,K 4.1 mmol/L (3.5-5.1)
[2019-12-02] MEDS ORDERED: Sodium Chloride 0.9% 500 ML IV SCH (07:15)
[2019-12-02] MEDS ORDERED: Sodium Chloride 0.9% 500 ML IV ONE (07:40)
[2019-12-02] MEDS ORDERED: Magnesium Oxide 400 MG Tab PO ONE (08:59)
--- NOTE | 2019-12-02 09:24 | PCM.HP.2 ---
H&P History of Present Illness - General Date of Service: 12/02/19 Admit Problem/Dx: Admission Diagnosis/Problem Admission Diagnosis/Problem Hypotension - History of Present Illness Initial Comments - Free Text/Narative: Patient 64-year-old female with past medical history of hypertension and hyperlipidemia presenting with chief complaint of low blood pressure and dizziness. Patient states her blood pressure this morning was 80/40. Patient states she was vomiting several times today. She did not want to come to the ER , but her daughter forced her to come to the ER. Denies any recent changes in her medications. Denies any fever, diarrhea, sore throat, shortness of breath. Per daughter she has been feeling "depressed lately". Reportedly she has mentioned to her daughter that she didn't have the will to live but had no plan to hurt herself On arrival in the ER patients BP was 80/40 with a pulse in the low 40s. Patient given IV fluids with minimal improvement of blood pressure still in the low 90s over low 40s. Atropine had no effect on patient's heart rate and blood pressure. Patient's labs showed acute kidney injury with a BUN of 29 and creatinine of 2.2. Serial EKGs were done demonstrating sinus bradycardia with no evidence of heart block or other significant abnormalities. Patient's likely cause for hypotension is combination of hypovolemia secondary to vomiting as well as possible beta-ricky overdose which was probably unintentional was patient denied any SI ideation. Patent has no known diagnosed of depression but states she takes Wellbutrin which was started for cigarette cessation but it helped her mood she she continued it . Patient given 3 g of calcium gluconate per recommendations from toxicology, poison control center. Patient had significant improvement of blood pressure with the calcium. Patient was also found to be hypoxic in low 90s and was placed on oxygen. CXR was normal , she has no chest pain, SOB, wheezing, known COPD or other lung disease. Patient was admitted for further management. UDS was obtained later which as positive for methamphetamines. Patient denied any drug use although states he daughter uses drugs. Patient states she tried to reach a psychiatrist but was never called back for an appointment. - Related Data Allergies/Adverse Reactions: Allergies Allergy/AdvReac Type Severity Reaction Status Date / Time morphine Allergy Vomiting Verified 12/02/19 02:53 Home Medications: Home Meds Metoprolol Succinate [Toprol XL 100mg] 100 mg PO DAILY 09/19/17 [History] Moexipril [Univasc] 1 tab PO DAILY 09/19/17 [History] amLODIPine Besylate [Amlodipine Besylate] 12/01/19 [History] atorvaSTATin Calcium [Atorvastatin Calcium] 12/01/19 [History] buPROPion [Wellbutrin] 12/01/19 [History] Past Medical History Cardiovascular History: Reports: Hypertension Respiratory History: Reports: SOB Other Gastrointestinal History: Liver Abscess drainage 2018 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 Liver Cyst Female Surgical History: Reports: Hysterectomy Other Female Surgeries/Procedures: Ovarian Cyst Social & Family History - Family History Family Medical History: Noncontributory - Tobacco Use Smoking Status *Q: Former Smoker Used Tobacco, but Quit: Yes Month/Year Tobacco Last Used: 30 - Caffeine Use Caffeine Use: Reports: None - Recreational Drug Use Recreational Drug Use: No H&P Review of Systems - Review of Systems: Review Of Systems: See Below General: Reports: Malaise, Weakness, Fatigue. Denies: Fever HEENT: Denies: Dysphasia, Ear Pain Pulmonary: Denies: Shortness of Breath, Wheezing, Pleuritic Chest Pain Cardiovascular: Reports: Lightheadedness. Denies: Chest Pain, Palpitations, Dyspnea on Exertion, Edema Gastrointestinal: Reports: Nausea, Vomiting. Denies: Abdominal Pain, Anorexia, Black Stool Genitourinary: Denies: Dysuria, Frequency, Burning Musculoskeletal: Denies: Neck Pain, Shoulder Pain, Arm Pain Skin: Denies: Cyanosis, Jaundice, Mottled Psychiatric: Denies: Confusion, Depression, Mood Lability Neurological: Denies: Confusion, Dizziness, Headache Hematologic/Lymphatic: Denies: Anemia, Easy Bleeding, Easy Bruising Exam - Exam Exam: See Below - Vital Signs Vital Signs: Last Vital Signs Temp 36.9 C 12/02/19 04:31 Pulse 60 12/02/19 04:31 Resp 15 12/02/19 04:31 BP 99/55 L 12/02/19 04:31 Pulse Ox 94 L 12/02/19 04:31 Weight: 90.083 kg - Exam Quality Assessment: Supplemental Oxygen General: Alert, Oriented, Cooperative Neck: Supple, Trachea Midline Lungs: Clear to Auscultation, Normal Respiratory Effort Cardiovascular: Regular Rate, Regular Rhythm, Bradycardia GI/Abdominal Exam: Normal Bowel Sounds, Soft, Non-Tender - Patient Data Lab Results Last 24 hrs: Laboratory Results - last 24 hr 12/01/19 12/01/19 12/01/19 Range/Units 19:55 20:40 20:40 WBC 14.35 H (4.0-11.0) K/uL RBC 4.34 (4.30-5.90) M/uL Hgb 13.4 (12.0-16.0) g/dL Hct 40.1 (36.0-46.0) % MCV 92.4 (80.0-98.0) fL MCH 30.9 (27.0-32.0) pg MCHC 33.4 (31.0-37.0) g/dL RDW Std Deviation 45.5 (28.0-62.0) fl RDW Coeff of Anna 14 (11.0-15.0) % Plt Count 313 (150-400) K/uL MPV 9.60 (7.40-12.00) fL Neut % (Auto) 77.6 (48.0-80.0) % Lymph % (Auto) 16.0 (16.0-40.0) % Rooks % (Auto) 6.2 (0.0-15.0) % Eos % (Auto) 0.1 (0.0-7.0) % Baso % (Auto) 0.1 (0.0-1.5) % Neut # (Auto) 11.1 H (1.4-5.7) K/uL Lymph # (Auto) 2.3 (0.6-2.4) K/uL Rooks # (Auto) 0.9 H (0.0-0.8) K/uL Eos # (Auto) 0.0 (0.0-0.7) K/uL Baso # (Auto) 0.0 (0.0-0.1) K/uL Nucleated RBC % 0.0 /100WBC Nucleated RBCs # 0 K/uL VBG pH (7.31-7.41) VBG pCO2 (35-45) mmHG VBG pO2 (30-40) mmHG VBG HCO3 (22-30) mEq/L VBG Total CO2 (41-51) mmol/L VBG Base Excess (-3.0-3.0) Sodium 139 (136-145) mmol/L Potassium 5.4 H (3.5-5.1) mmol/L Chloride 103 (98-107) mmol/L Carbon Dioxide 27.4 (21.0-32.0) mmol/L BUN 29 H (7.0-18.0) mg/dL Creatinine 2.2 H (0.6-1.0) mg/dL Est Cr Clr Drug Dosing 19.24 mL/min Estimated GFR (MDRD) 22.4 ml/min Glucose 129 H (74-106) mg/dL POC Glucose (60-110) mg/dL Calcium 9.9 (8.5-10.1) mg/dL Phosphorus (2.6-4.7) mg/dL Magnesium (1.8-2.4) mg/dL Total Bilirubin 0.9 (0.2-1.0) mg/dL AST 11 L (15-37) IU/L ALT 20 (14-63) IU/L Alkaline Phosphatase 64 (46-116) U/L Troponin I < 0.050 (0.000-0.056) ng/mL Total Protein 6.9 (6.4-8.2) g/dL Albumin 3.8 (3.4-5.0) g/dL Globulin 3.1 (2.6-4.0) g/dL Albumin/Globulin Ratio 1.2 (0.9-1.6) Salicylates 0.3 (0-20) mg/dL Urine Opiates Screen (NEGATIVE) Ur Oxycodone Screen (NEGATIVE) Urine Methadone Screen (NEGATIVE) Acetaminophen ug/mL Ur Barbiturates Screen (NEGATIVE) Ur Phencyclidine Scrn (NEGATIVE) Ur Amphetamine Screen (NEGATIVE) U Methamphetamines Scrn (NEGATIVE) U Benzodiazepines Scrn (NEGATIVE) U Cocaine Metab Screen (NEGATIVE) U Marijuana (THC) Screen (NEGATIVE) 12/01/19 12/01/19 12/01/19 Range/Units 20:40 20:50 20:53 WBC (4.0-11.0) K/uL RBC (4.30-5.90) M/uL Hgb (12.0-16.0) g/dL Hct (36.0-46.0) % MCV (80.0-98.0) fL MCH (27.0-32.0) pg MCHC (31.0-37.0) g/dL RDW Std Deviation (28.0-62.0) fl RDW Coeff of Anna (11.0-15.0) % Plt Count (150-400) K/uL MPV (7.40-12.00) fL Neut % (Auto) (48.0-80.0) % Lymph % (Auto) (16.0-40.0) % Rooks % (Auto) (0.0-15.0) % Eos % (Auto) (0.0-7.0) % Baso % (Auto) (0.0-1.5) % Neut # (Auto) (1.4-5.7) K/uL Lymph # (Auto) (0.6-2.4) K/uL Rooks # (Auto) (0.0-0.8) K/uL Eos # (Auto) (0.0-0.7) K/uL Baso # (Auto) (0.0-0.1) K/uL Nucleated RBC % /100WBC Nucleated RBCs # K/uL VBG pH 7.41 (7.31-7.41) VBG pCO2 45 (35-45) mmHG VBG pO2 36 (30-40) mmHG VBG HCO3 28 (22-30) mEq/L VBG Total CO2 25 L (41-51) mmol/L VBG Base Excess 2.9 (-3.0-3.0) Sodium (136-145) mmol/L Potassium (3.5-5.1) mmol/L Chloride (98-107) mmol/L Carbon Dioxide (21.0-32.0) mmol/L BUN (7.0-18.0) mg/dL Creatinine (0.6-1.0) mg/dL Est Cr Clr Drug Dosing mL/min Estimated GFR (MDRD) ml/min Glucose (74-106) mg/dL POC Glucose 121 H (60-110) mg/dL Calcium (8.5-10.1) mg/dL Phosphorus (2.6-4.7) mg/dL Magnesium (1.8-2.4) mg/dL Total Bilirubin (0.2-1.0) mg/dL AST (15-37) IU/L ALT (14-63) IU/L Alkaline Phosphatase (46-116) U/L Troponin I (0.000-0.056) ng/mL Total Protein (6.4-8.2) g/dL Albumin (3.4-5.0) g/dL Globulin (2.6-4.0) g/dL Albumin/Globulin Ratio (0.9-1.6) Salicylates (0-20) mg/dL Urine Opiates Screen (NEGATIVE) Ur Oxycodone Screen (NEGATIVE) Urine Methadone Screen (NEGATIVE) Acetaminophen <2.0 ug/mL Ur Barbiturates Screen (NEGATIVE) Ur Phencyclidine Scrn (NEGATIVE) Ur Amphetamine Screen (NEGATIVE) U Methamphetamines Scrn (NEGATIVE) U Benzodiazepines Scrn (NEGATIVE) U Cocaine Metab Screen (NEGATIVE) U Marijuana (THC) Screen (NEGATIVE) 12/01/19 12/02/19 12/02/19 Range/Units 23:33 00:45 06:10 WBC 10.73 (4.0-11.0) K/uL RBC 3.76 L (4.30-5.90) M/uL Hgb 11.2 L (12.0-16.0) g/dL Hct 35.2 L (36.0-46.0) % MCV 93.6 (80.0-98.0) fL MCH 29.8 (27.0-32.0) pg MCHC 31.8 (31.0-37.0) g/dL RDW Std Deviation 46.3 (28.0-62.0) fl RDW Coeff of Anna 14 (11.0-15.0) % Plt Count 248 (150-400) K/uL MPV 9.30 (7.40-12.00) fL Neut % (Auto) 56.4 (48.0-80.0) % Lymph % (Auto) 33.7 (16.0-40.0) % Rooks % (Auto) 8.9 (0.0-15.0) % Eos % (Auto) 0.7 (0.0-7.0) % Baso % (Auto) 0.3 (0.0-1.5) % Neut # (Auto) 6.1 H (1.4-5.7) K/uL Lymph # (Auto) 3.6 H (0.6-2.4) K/uL Rooks # (Auto) 1.0 H (0.0-0.8) K/uL Eos # (Auto) 0.1 (0.0-0.7) K/uL Baso # (Auto) 0.0 (0.0-0.1) K/uL Nucleated RBC % 0.0 /100WBC Nucleated RBCs # 0 K/uL VBG pH (7.31-7.41) VBG pCO2 (35-45) mmHG VBG pO2 (30-40) mmHG VBG HCO3 (22-30) mEq/L VBG Total CO2 (41-51) mmol/L VBG Base Excess (-3.0-3.0) Sodium (136-145) mmol/L Potassium (3.5-5.1) mmol/L Chloride (98-107) mmol/L Carbon Dioxide (21.0-32.0) mmol/L BUN (7.0-18.0) mg/dL Creatinine (0.6-1.0) mg/dL Est Cr Clr Drug Dosing mL/min Estimated GFR (MDRD) ml/min Glucose (74-106) mg/dL POC Glucose (60-110) mg/dL Calcium (8.5-10.1) mg/dL Phosphorus (2.6-4.7) mg/dL Magnesium (1.8-2.4) mg/dL Total Bilirubin (0.2-1.0) mg/dL AST (15-37) IU/L ALT (14-63) IU/L Alkaline Phosphatase (46-116) U/L Troponin I < 0.050 (0.000-0.056) ng/mL Total Protein (6.4-8.2) g/dL Albumin (3.4-5.0) g/dL Globulin (2.6-4.0) g/dL Albumin/Globulin Ratio (0.9-1.6) Salicylates (0-20) mg/dL Urine Opiates Screen NEGATIVE (NEGATIVE) Ur Oxycodone Screen NEGATIVE (NEGATIVE) Urine Methadone Screen NEGATIVE (NEGATIVE) Acetaminophen ug/mL Ur Barbiturates Screen NEGATIVE (NEGATIVE) Ur Phencyclidine Scrn NEGATIVE (NEGATIVE) Ur Amphetamine Screen NEGATIVE (NEGATIVE) U Methamphetamines Scrn POSITIVE (NEGATIVE) U Benzodiazepines Scrn NEGATIVE (NEGATIVE) U Cocaine Metab Screen NEGATIVE (NEGATIVE) U Marijuana (THC) Screen NEGATIVE (NEGATIVE) 12/02/19 Range/Units 06:10 WBC (4.0-11.0) K/uL RBC (4.30-5.90) M/uL Hgb (12.0-16.0) g/dL Hct (36.0-46.0) % MCV (80.0-98.0) fL MCH (27.0-32.0) pg MCHC (31.0-37.0) g/dL RDW Std Deviation (28.0-62.0) fl RDW Coeff of Anna (11.0-15.0) % Plt Count (150-400) K/uL MPV (7.40-12.00) fL Neut % (Auto) (48.0-80.0) % Lymph % (Auto) (16.0-40.0) % Rooks % (Auto) (0.0-15.0) % Eos % (Auto) (0.0-7.0) % Baso % (Auto) (0.0-1.5) % Neut # (Auto) (1.4-5.7) K/uL Lymph # (Auto) (0.6-2.4) K/uL Rooks # (Auto) (0.0-0.8) K/uL Eos # (Auto) (0.0-0.7) K/uL Baso # (Auto) (0.0-0.1) K/uL Nucleated RBC % /100WBC Nucleated RBCs # K/uL VBG pH (7.31-7.41) VBG pCO2 (35-45) mmHG VBG pO2 (30-40) mmHG VBG HCO3 (22-30) mEq/L VBG Total CO2 (41-51) mmol/L VBG Base Excess (-3.0-3.0) Sodium 139 (136-145) mmol/L Potassium 4.1 (3.5-5.1) mmol/L Chloride 104 (98-107) mmol/L Carbon Dioxide 28.3 (21.0-32.0) mmol/L BUN 26 H (7.0-18.0) mg/dL Creatinine 1.4 H (0.6-1.0) mg/dL Est Cr Clr Drug Dosing 30.23 mL/min Estimated GFR (MDRD) 37.7 ml/min Glucose 106 (74-106) mg/dL POC Glucose (60-110) mg/dL Calcium 9.4 (8.5-10.1) mg/dL Phosphorus 5.2 H (2.6-4.7) mg/dL Magnesium 1.7 L (1.8-2.4) mg/dL Total Bilirubin (0.2-1.0) mg/dL AST (15-37) IU/L ALT (14-63) IU/L Alkaline Phosphatase (46-116) U/L Troponin I (0.000-0.056) ng/mL Total Protein (6.4-8.2) g/dL Albumin (3.4-5.0) g/dL Globulin (2.6-4.0) g/dL Albumin/Globulin Ratio (0.9-1.6) Salicylates (0-20) mg/dL Urine Opiates Screen (NEGATIVE) Ur Oxycodone Screen (NEGATIVE) Urine Methadone Screen (NEGATIVE) Acetaminophen ug/mL Ur Barbiturates Screen (NEGATIVE) Ur Phencyclidine Scrn (NEGATIVE) Ur Amphetamine Screen (NEGATIVE) U Methamphetamines Scrn (NEGATIVE) U Benzodiazepines Scrn (NEGATIVE) U Cocaine Metab Screen (NEGATIVE) U Marijuana (THC) Screen (NEGATIVE) Result Diagrams: 12/02/19 06:10 12/02/19 06:10 Sepsis Event Note - Evaluation Sepsis Screening Result: No Definite Risk - Focused Exam Vital Signs: Vital Signs Temp Pulse Resp BP Pulse Ox Pulse Ox 12/02/19 04:31 36.9 C 60 15 99/55 L 94 L 12/02/19 01:00 94 L 94 L 12/02/19 00:10 36.7 C 49 L 15 120/42 L 94 L 12/02/19 00:05 49 L 14 108/59 L 94 L 12/01/19 23:33 44 L 14 113/55 L 94 L 12/01/19 23:13 45 L 98/55 L 94 L 12/01/19 22:50 44 L 96/42 L 93 L 12/01/19 21:58 43 L 87/41 L 95 Date Exam was Performed: 12/02/19 Time Exam was Performed: 14:10 - Problem List (1) Hypotension SNOMED Code(s): 59472295 ICD Code: I95.9 - HYPOTENSION, UNSPECIFIED Status: Acute Current Visit: Yes (2) Hypoxia SNOMED Code(s): 053662834 ICD Code: R09.02 - HYPOXEMIA Status: Acute Current Visit: Yes Problem List Initiated/Reviewed/Updated: Yes Orders Last 24hrs: Active Orders 24 hr Category Date Time Status Admission Status [Patient Status] [ADT] Stat ADT 12/01/19 23:31 Active Antiembolic Devices [RC] PER UNIT ROUTINE Care 12/01/19 23:39 Active EKG 12 Lead [EKG Documentation Completion] [RC] STAT Care 12/01/19 19:49 Active EKG Documentation Completion [RC] STAT Care 12/01/19 23:19 Active Oxygen Therapy [RC] PRN Care 12/01/19 23:38 Active Pulse Oximetry [RC] PRN Care 12/01/19 23:38 Active RT Aerosol Therapy [RC] ASDIRECTED Care 12/01/19 23:42 Active Telemetry Monitoring [Cardiac Monitoring] [RC] Q8H Care 12/01/19 23:35 Active VTE/DVT Education [RC] PER UNIT ROUTINE Care 12/01/19 23:38 Active Vital Signs [RC] Q4H Care 12/01/19 23:38 Active Regular Diet [DIET] Diet 12/02/19 Breakfast Active Albuterol [Proventil Neb Soln] Med 12/01/19 23:41 Active 1 mg NEB Q4HRRT PRN Atropine [Atropine 0.1 MG/ML] Med 12/01/19 23:39 Active 0.5 mg IVPUSH ONETIME PRN Sodium Chloride 0.9% [Normal Saline] 1,000 ml Med 12/01/19 23:45 Active IV ASDIRECTED Sequential Compression Device [OM.PC] Per Unit Routine Oth 12/01/19 23:38 Ordered Medication Orders Albuterol (Proventil Neb Soln) 1 mg NEB Q4HRRT PRN PRN Reason: Shortness of Breath Atropine Sulfate (Atropine 0.1 Mg/Ml) 0.5 mg IVPUSH ONETIME PRN PRN Reason: Bradycardia Sodium Chloride (Normal Saline) 1,000 mls @ 125 mls/hr IV ASDIRECTED [facility] Last Admin: 12/02/19 00:35 Dose: 125 mls/hr Assessment/Plan Comment:: 64 y/o F admitted for hypotension, Sinus Bradycardia and hypoxia Labs show JOAQUIM, likely pre-renal Cont IV fluids for hydration HR is improving gradually to high 50s, BP is much better Will hold B-ricky and other antihypertensives for now Cont Wellbutrin Will get Tele-psych for possible MDD Still requiring 2L O2, will try to wean as able. Cont ICS, cont Albuterol nebs as needed
--- NOTE | 2019-12-03 10:07 | PCM.DCSUM1 ---
Discharge Summary - Hospital Course Brief History: Patient 64-year-old female with past medical history of hypertension and hyperlipidemia presenting with chief complaint of low blood pressure and dizziness. Patient states her blood pressure this morning was 80/ 40. Patient states she was vomiting several times today. She did not want to come to the ER, but her daughter forced her to come to the ER. Denies any recent changes in her medications. Denies any fever, diarrhea, sore throat, shortness of breath. Per daughter she has been feeling "depressed lately". Reportedly she has mentioned to her daughter that she didn't have the will to live but had no plan to hurt herself. On arrival in the ER patients BP was 80/ 40 with a pulse in the low 40s. Patient given IV fluids with minimal improvement of blood pressure still in the low 90s over low 40s. Atropine had no effect on patient's heart rate and blood pressure. Patient's labs showed acute kidney injury with a BUN of 29 and creatinine of 2.2. Serial EKGs were done demonstrating sinus bradycardia with no evidence of heart block or other significant abnormalities. Patient's likely cause for hypotension is combination of hypovolemia secondary to vomiting as well as possible beta- ricky overdose which was probably unintentional was patient denied any SI ideation. Patent has no known diagnosed of depression but states she takes Wellbutrin which was started for cigarette cessation but it helped her mood she she continued it . Patient given 3 g of calcium gluconate per recommendations from toxicology, poison control center. Patient had significant improvement of blood pressure with the calcium. Patient was also found to be hypoxic in low 90s and was placed on oxygen. CXR was normal, she has no chest pain, SOB, wheezing, known COPD or other lung disease. Patient was admitted for further management. UDS was obtained later which as positive for methamphetamines. Patient denied any drug use although states he daughter uses drugs. Patient states she tried to reach a psychiatrist but was never called back for an appointment. Diagnosis: Stroke: No Modified Billie Scale: No Symptoms at All Modified Elk Scale Score: 0 - Discharge Data Discharge Date: 12/03/19 Discharge Disposition: Home, Self-Care 01 Condition: Good - Referral to Home Health Primary Care Physician: Deny Win MD - Patient Summary/Data Consults: Consultations 12/02/19 09:37 Consult to Physician [CONS] Routine Hospital Course: Admitting Diagnoses: Bradycardia Hypotension Discharge Diagnoses: Bradycardia- resolved Hypotension- resolved Beta-ricky toxicity Other PMH Depression Anxiety Luh was admitted secondary to hypotension and bradycardia. Atropine given in ED, had no effect on heart. EKG did not show signs of heart block. She denies taking more medication than prescribed. There was some concern from daughter regarding patient being suicidal or depressed, patient denied suicidal ideation. Confirms depression and needing to see professional help for this. She was treated with Calcium gluconate, which improved heart rate and blood pressure. She was monitored overnight, HR improved to 50-60s and BP improved to 115/60s. She denies symptoms and is very eager to go home today. She was seen by Dr Cain for depression. She was started on Abilify 2 mg and Remeron 15 mg at bedtime. She will remain on Wellbutrin XL at her dosing. She is to stop all BP medications for now and monitor BP at home. She was counseled to keep a log of these to show provider at follow up. I would recommend not restarting beta ricky due to bradycardia. She is to return to the ED or clinic if concern should arise. - Patient Instructions Diet: Heart Healthy Diet Activity: As Tolerated, No Strenuous Activities Showering/Bathing: May Shower Notify Provider of: Fever, Increased Pain, Swelling and Redness, Drainage, Nausea and/or Vomiting Other/Special Instructions: Monitor blood pressure at home, keep log for follow up with primary care provider. Call Dr Cain clinic to arrange outpatient follow up. - Discharge Plan *PRESCRIPTION DRUG MONITORING PROGRAM REVIEWED*: Not Applicable *COPY OF PRESCRIPTION DRUG MONITORING REPORT IN PATIENT MICK: Not Applicable Prescriptions/Med Rec: ARIPiprazole [Abilify] 2 mg PO DAILY #30 tablet Mirtazapine [Remeron] 15 mg PO BEDTIME #30 tab Home Medications: Home Meds atorvaSTATin Calcium [Atorvastatin Calcium] 20 mg PO BEDTIME 12/01/19 [History] ARIPiprazole [Abilify] 2 mg PO DAILY #30 tablet 12/03/19 [Rx] Atropine [Atropine 0.1 MG/ML] 0.5 mg IVPUSH ONETIME PRN syringe 12/03/19 [Rx] Ezetimibe 10 mg PO BEDTIME 12/03/19 [History] Mirtazapine [Remeron] 15 mg PO BEDTIME #30 tab 12/03/19 [Rx] buPROPion HCL [Bupropion Xl] 300 mg PO DAILY 12/03/19 [History] Oxygen Therapy Mode: Room Air Patient Handouts: Hypotension, [id number], Mirtazapine tablets, Aripiprazole tablets Referrals: Deny Win MD [Primary Care Provider] - 12/10/19 2:30 pm - Discharge Summary/Plan Comment DC Time >30 min.: No - Patient Data Vitals - Most Recent: Last Vital Signs Temp 97.2 F 12/03/19 08:00 Pulse 57 L 12/03/19 08:00 Resp 16 12/03/19 08:00 BP 122/50 L 12/03/19 08:00 Pulse Ox 95 12/03/19 08:00 Weight - Most Recent: 90.083 kg I&O - Last 24 hours: Intake & Output 12/02/19 12/03/19 12/03/19 22:59 06:59 14:59 Intake Total 1791 1000 Output Total 200 1100 Balance 1591 -100 Med Orders - Current: Current Medications Albuterol (Proventil Neb Soln) 1 mg NEB Q4HRRT PRN PRN Reason: Shortness of Breath Aripiprazole (Abilify) 2 mg PO DAILY HARLEY Atropine Sulfate (Atropine 0.1 Mg/Ml) 0.5 mg IVPUSH ONETIME PRN PRN Reason: Bradycardia Discontinued Medications Atropine Sulfate (Atropine 0.1 Mg/Ml) 0.5 mg IVPUSH ONETIME ONE Stop: 12/01/19 20:48 Last Admin: 12/01/19 21:03 Dose: 0.5 mg Calcium Gluconate (Calcium Gluconate) 3 gm IVPUSH ONETIME ONE Stop: 12/01/19 21:57 Last Admin: 12/01/19 23:11 Dose: 3 gm Glucagon (Glucagen) 3 mg IVPUSH ONETIME ONE Stop: 12/01/19 21:50 Last Admin: 12/01/19 23:15 Dose: Not Given Sodium Chloride (Normal Saline) 500 mls @ 1,000 mls/hr IV .BOLUS HARLEY Last Admin: 12/01/19 20:04 Dose: 1,000 mls/hr Sodium Chloride (Normal Saline) 500 mls @ 1,000 mls/hr IV .BOLUS [facility] Last Admin: 12/01/19 21:00 Dose: 1,000 mls/hr Sodium Chloride (Normal Saline) 1,000 mls @ 125 mls/hr IV ASDIRECTED [facility] Last Admin: 12/02/19 09:34 Dose: 125 mls/hr Sodium Chloride (Normal Saline) 500 mls @ 1,000 mls/hr IV BOLUS HARLEY Sodium Chloride (Normal Saline) 500 mls @ 999 mls/hr IV .BOLUS ONE Stop: 12/02/19 08:10 Last Admin: 12/02/19 07:30 Dose: 999 mls/hr Magnesium Oxide (Magnesium Oxide) 800 mg PO ONETIME ONE Stop: 12/02/19 09:00 Last Admin: 12/02/19 09:37 Dose: 800 mg Ondansetron HCl (Zofran) 4 mg IVPUSH ONETIME ONE Stop: 12/01/19 20:03 Last Admin: 12/01/19 23:12 Dose: Not Given - Exam General: Reports: Alert, Oriented, Cooperative, No Acute Distress Lungs: Reports: Clear to Auscultation, Normal Respiratory Effort Cardiovascular: Reports: Regular Rate, Regular Rhythm. Denies: Bradycardia GI/Abdominal Exam: Normal Bowel Sounds, Soft, Non-Tender Wound/Incisions: Reports: Healing Well Neurological: Reports: No New Focal Deficit Psy/Mental Status: Reports: Alert, Normal Affect, Normal Mood
--- NOTE | 2019-12-03 15:17 | CONS ---
DATE OF CONSULTATION: 12/03/2019 DATE OF : 1955 PRIMARY CARE PHYSICIAN: Deny Win MD Site where the services were provided are [facility] in [place], [place]. Site where the services are provided from our office is in [facility]. Length of service for this 60-minute inpatient telemedicine event is 60 minutes. ID: The patient is a 64-year-old female who is admitted to the Inpatient Med Surg Unit at [facility] in [place], [place]. She is seen for a psychiatric consultation per the request of staff attending, Dr. Baig, and her treatment team. CHIEF COMPLAINT: "Tuesday morning, I got sick. I was throwing up and feeling really strange, so my daughter called the ambulance." HISTORY OF PRESENT ILLNESS: The patient is a 64-year-old female who was admitted to the [facility] Med Surg Unit in [place], [place], secondary to problems with hypotension and symptomatic bradycardia. During medical stabilization, the patient came back meth positive and there was a question of whether she had attempted to overdose or not per collateral information received from daughter. The patient is adamantly denying any illicit substance use or excessive alcohol complicating the clinical picture, stating "I have no idea where that positive finding came from. I don't do drugs, I don't drink except one glass of wine a day at night." She does state that her daughter has chemical dependency issues involving meth and she may have gotten positive by being around her daughter who has had to move in with her at her place in [place] secondary to her daughter having some legal issues. The patient states that she simply was having medical issues and she was never suicidal and is not suicidal at this point in time. She has a lot of work-related stressors. She has been struggling with some depression. She has been taking Wellbutrin "for years" and she states she initially took this medication to help with smoking, but she felt that "it made me less crabby" and so she has been taking it. She states lately she has been having the work-related stressors. Her daughter has also been struggling with chemical dependency issues and "my son has cancer." She states "it all seems to come to a head at one time" in terms of her stressors, and she states she has been somewhat more depressed and having racing thoughts ruminations with everything that is going on at the moment. She also states that her sleep is problematic stating, "I don't sleep very good." She states she only gets 4-5 hours of sleep and she notes lack of appetite occurring as well. Again, she denies that she is suicidal or homicidal. She denies any psychotic, delusional, or paranoid symptoms. She is having mood swings where she has more irritability as well as some anxiety, and she is open to trying something in addition to the Wellbutrin which has not been as effective as it was in the past. She states she wants to go see a psychiatrist and "they were supposed to call me, but they never did with this coronavirus going on." MEDICATIONS: At the time of presentation is Wellbutrin, but the patient is not sure what the dose is or what the formulation of this medication is. ALLERGIES: The patient is allergic to morphine. PAST MEDICAL HISTORY: 1. Hypertension. 2. High cholesterol. REVIEW OF SYSTEMS: Aside from cardiovascular and endocrine, all other major organ systems are negative at this point in time for acute difficulties or complications. FAMILY PSYCHIATRIC HISTORY: The patient reports daughter struggling with chemical dependency issues. PAST PSYCHIATRIC HISTORY: The patient denies any previous psychiatric hospitalizations or chemical dependency treatments. She is a nontobacco user. She states she uses one glass of wine per day in the evening. Denies any previous suicide attempts or self- injurious behaviors. Reports no past psychiatric medication history. SOCIAL HISTORY: The patient is born in [place], [place], raised in [place] and [place]. 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 She lives in [place], [place], and her daughter is living with her at this point in time. She is not involved in any relationships at this point in time. She denies any prior service or current legal difficulties. 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 She enjoys reading in her spare time. MENTAL STATUS EXAM: The patient is a 64-year-old white female in no apparent distress. Speech is of regular rate and rhythm. The patient is cognitively oriented. Psychomotor activities within normal limits. There are no abnormal motor movements or tics observed. Gait steady. Station is normal. Mood is depressed, overwhelmed, and goldman. Affect is cooperative overall for the purposes of the inpatient consult. There is no behavioral or stated evidence of acute suicidal or homicidal ideation or acute psychotic, delusional, or paranoid symptoms. Thought processes are significant for racing thoughts, ruminations. There is no true manic symptoms or loose associations evident. Judgment and insight appear unimpaired at this point in time. Motivation for help is good. VITAL SIGNS: 116/50, 60, 18, and 36.5 degrees. IMPRESSION: Lyons I: 1. Bipolar affective disease, mixed type, F31.60. 2. Anxiety disorder, not otherwise specified, F41.9. 3. Rule out major depressive disorder. Lyons II: None. Lyons III: 1. Hypertension. 2. High cholesterol. 3. Symptomatic bradycardia with attendant hypotension as the reason for original admission. Lyons IV: Severe. Lyons V: 60. PLAN: 1. Begin trial of Abilify 2 mg q.a.m. for mood stability and clarity of thought and also to augment the patient's antidepressant medication regimen. 2. Begin trial of Remeron 15 mg at bedtime to help with symptoms of depression as well as anxiety reduction and sleep initiation and maintenance. 3. Continue to clarify the patient's Wellbutrin medication and again continue at its current formulation and dose once clarified. 4. Other medications are those prescribed by the patient's inpatient primary medical treatment team. 5. The patient is apprised of benefits and side effects of her newly initiated and continued psychiatric medication regimen. She acknowledges to understanding of these facts. She has no further questions by the end of the interview session. 6. Medication compliance. 7. The patient appears psychiatrically stable at this point in time and does not appear to be a danger to herself or others and consequently can be discharged back to the community from a psychiatric standpoint when she is medically stabilized. 8. Recommend the patient follow up with Outpatient Psychiatry in approximately 2-4 weeks to assess overall function and efficacy of her newly initiated and continued psychiatric medication regimen. 9. We will follow up with the patient on an as-needed basis while she remains on the Inpatient Med Surg Unit at [facility] in [place], [place]. 10.Crisis plan is in place. JORDEN / GIL /[id number]
== END 2019-12-03 10:45 | disposition home or self-care (01) ==
LOC: MW.ED 19:17 → MW.MS 23:31
PROVIDERS: ADMIT Student in an Organized Health Care Education/Training Program; ATTEND Student in an Organized Health Care Education/Training Program
DX: I95.2 Hypotension due to drugs (principal); R00.1 Bradycardia, unspecified; T44.7X1A Poisoning by beta-adrenoreceptor antagonists, accidental (unintentional), initial encounter; R09.02 Hypoxemia; I10 Essential (primary) hypertension; E78.5 Hyperlipidemia, unspecified; F41.9 Anxiety disorder, unspecified; F31.60 Bipolar disorder, current episode mixed, unspecified; E78.00 Pure hypercholesterolemia, unspecified; Z88.6 Allergy status to analgesic agent; Z79.899 Other long term (current) drug therapy; Z87.891 Personal history of nicotine dependence
CPT/HCPCS: 36415; 71045; 80048; 80053; 80305; 80307; 82803; 82962; 83735; 84100; 84484; 85025; 93005; 96374; 96375; 99291; A9270; J0461; J0610; J7030; J7040; 99285

== ENCOUNTER 2022-07-23 08:56 | Emergency (ER) | payer MEDICARE, OTHER | END 2022-07-23 11:40 | disposition home or self-care (01) | LOC: MW.ED 08:56 | DX: K94.03 Colostomy malfunction (principal); I10 Essential (primary) hypertension; Z88.5 Allergy status to narcotic agent; Z79.899 Other long term (current) drug therapy | CPT/HCPCS: 99282 ==

== ENCOUNTER 2024-01-14 06:30 | Emergency (ER) | payer MEDICARE, OTHER ==
[2024-01-14 06:55] LABS: BASOPHILS ABSOLUTE AUTO 0.02 K/uL (0.00-0.20); BASOPHILS PERCENT AUTO 0.2 % (0.0-1.0); EOSINOPHILS ABSOLUTE AUTO 0.04 K/uL (0.00-0.45); EOSINOPHILS PERCENT AUTO 0.4 % (0.0-6.0); HEMATOCRIT 36.7 % (37.0-47.0); HEMOGLOBIN 12.2 g/dL (12.0-16.0); IMMATURE GRAN ABSOLUTE AUTO 0.04 K/uL (0.00-0.05); IMMATURE GRAN PERCENT AUTO 0.4 % (0.0-0.4); LYMPHOCYTES PERCENT AUTO 12.3 % (24.0-44.0); MEAN CORPUSCULAR HEMOGLOBIN 29.3 pg (28.0-32.0); MEAN CORPUSCULAR HGB CONC 33.2 g/dL (32.0-36.0); MEAN CORPUSCULAR VOLUME 88.2 fL (83.0-99.0); MEAN PLATELET VOLUME 9.2 fL (9.4-12.3); MONOCYTES ABSOLUTE AUTO 0.67 K/uL (0.00-0.80); MONOCYTES PERCENT AUTO 6.3 % (0.0-8.0); NEUTROPHILS ABSOLUTE AUTO 8.52 K/uL (1.80-7.70); NEUTROPHILS PERCENT AUTO 80.4 % (41.0-71.0); PLATELET COUNT,PLT 244 K/uL (150-400); RED BLOOD CELL COUNT 4.16 M/uL (4.10-5.30); WHITE BLOOD CELL COUNT,WBC 10.59 K/uL (3.9-11.3)
[2024-01-14 07:05] LABS: A/G RATIO 0.9 (0.9-1.6); ALBUMIN 3.5 g/dL (3.4-5.0); BILIRUBIN TOTAL 1.5 mg/dL (0.2-1.0); CARBON DIOXIDE,CO2 27.4 mmol/L (21.0-32.0); CREATININE 0.9 mg/dL (0.6-1.0); EST CRCL DRUG DOSING (CG) 46.66 mL/min; POTASSIUM,K 3.8 mmol/L (3.5-5.1); PROTEIN TOTAL,TP 7.6 g/dL (6.4-8.2)
[2024-01-14] MEDS: Sodium Chloride 0.9% 10 ML Syringe FLUSH PRN (07:05)
[2024-01-14] MEDS: Sodium Chloride 0.9% 2.5 ML Syringe FLUSH PRN (07:05)
[2024-01-14] MEDS: Sodium Chloride 0.9% 1,000 ML IV ONE (07:05)
[2024-01-14] MEDS: Iopamidol 755 Mg/ML 100 ML Bottle IVPUSH ONE (08:21)
[2024-01-14 08:23] LABS: APPEARANCE,URINE CLEAR; BILIRUBIN,URINE NEGATIVE (NEGATIVE); COLOR,URINE YELLOW; GLUCOSE,URINE NEGATIVE (NEGATIVE); KETONES,URINE NEGATIVE (NEGATIVE); LEUKOCYTE ESTERASE,URINE NEGATIVE (NEGATIVE); NITRITE,URINE NEGATIVE (NEGATIVE); OCCULT BLOOD,URINE NEGATIVE (NEGATIVE); PH,URINE 5.5 (5.0-8.0); PROTEIN,URINE NEGATIVE (NEGATIVE); UROBILINOGEN,URINE 0.2 EU/dL (<2.0)
== END 2024-01-14 10:40 | disposition left against medical advice (07) ==
LOC: MW.ED 06:30
DX: R10.32 Left lower quadrant pain (principal); I10 Essential (primary) hypertension; Z90.710 Acquired absence of both cervix and uterus; Z79.899 Other long term (current) drug therapy; Z88.5 Allergy status to narcotic agent; Z75.8 Other problems related to medical facilities and other health care
CPT/HCPCS: 36415; 74177; 80053; 81003; 83690; 84484; 85025; 93005; 99284; J3490; J7030; Q9967; 93010

== ENCOUNTER 2024-01-14 10:52 | Emergency (ER) | payer MEDICARE, OTHER | END 2024-01-14 15:34 | LOC: MW.ED 10:52 | DX: R10.9 Unspecified abdominal pain (principal); I10 Essential (primary) hypertension; Z90.710 Acquired absence of both cervix and uterus; Z88.5 Allergy status to narcotic agent; Z79.899 Other long term (current) drug therapy; Z75.8 Other problems related to medical facilities and other health care | CPT/HCPCS: 99284; 99285 ==